=== PATIENT | male | born 1960 | race Caucasian/White ===

== ENCOUNTER → 2016-05-11 | Outpatient (CLI) | payer MEDICAID ==
[~2016-05-11] MED LIST: ASPI81TAEC PO; CURI4PAD20 XX; FOLI1TAB2 PO; GABA300C3 PO; LEVO150T7 PO; OXYC-517 PO; SYNT175T2 PO; THIA100TA PO; TRIPOIN4 EX; VITA100T2 PO; ZOFR4TAB3 PO; serax PO
== END ==
LOC: M OUTALCOH 08:59
PROVIDERS: ATTEND Psychiatry & Neurology Psychiatry
DX: F10.20 Alcohol dependence, uncomplicated (principal)

== ENCOUNTER 2016-05-23 09:22 | Outpatient (RCR) | payer MEDICAID | END 2016-05-24 | disposition home or self-care (01) | LOC: M OUTALCOH 09:22 | PROVIDERS: ATTEND Psychiatry & Neurology Psychiatry | DX: F10.20 Alcohol dependence, uncomplicated (principal) ==

== ENCOUNTER 2016-06-13 08:45 | Outpatient (RCR) | payer MEDICAID | END 2016-06-21 | LOC: M OUTALCOH 08:45 | PROVIDERS: ATTEND Psychiatry & Neurology Psychiatry | DX: F10.20 Alcohol dependence, uncomplicated (principal) ==

== ENCOUNTER 2017-10-12 09:32 | Emergency (ER) | payer OTHER, MEDICAID ==
[2017-10-12] MEDS: OXAZEPAM 15 MG CAP PO (10:17)
[2017-10-12 10:25] LABS: HEMATOCRIT 42.1 % (42.0-52.0); HEMOGLOBIN 15.2 g/dl (13.5-17.5); MEAN CORPUSCULAR HEMOGLOBIN 30.8 pg (27.0-33.0); MEAN CORPUSCULAR HGB CONC 36.1 g/dl (32.0-36.5); MEAN CORPUSCULAR VOLUME 85.4 fl (80.0-96.0); PLATELET COUNT, AUTOMATED 215 10^3/uL (150-450); RED BLOOD COUNT 4.93 10^6/uL (4.30-6.10); RED CELL DISTRIBUTION WIDTH 13.3 % (11.5-14.5); WHITE BLOOD COUNT 9.3 10^3/uL (4.0-10.0)
[2017-10-12 10:45] LABS: INR 0.82; PROTHROMBIN TIME 11.3 SECONDS (12.4-14.5)
[2017-10-12 10:57] LABS: ALBUMIN 3.6 GM/DL (3.2-5.2); ALBUMIN/GLOBULIN RATIO 1.06 (1.00-1.93); ALKALINE PHOSPHATASE 137 U/L (45-117); ALT/SGPT 34 U/L (12-78); ANION GAP 11 MEQ/L (8-16); AST/SGOT 42 U/L (7-37); BILIRUBIN,DIRECT 0.3 MG/DL (0.0-0.2); BILIRUBIN,TOTAL 0.7 MG/DL (0.2-1.0); BLOOD UREA NITROGEN 12 MG/DL (7-18); CALCIUM LEVEL 7.8 MG/DL (8.5-10.1); CARBON DIOXIDE LEVEL 27 MEQ/L (21-32); CHLORIDE LEVEL 103 MEQ/L (98-107); CREATININE FOR GFR 1.16 MG/DL (0.70-1.30); ETHYL ALCOHOL (ETHANOL) 0.275 % (0.000-0.010); FREE T4 0.85 NG/DL (0.76-1.46); GLOMERULAR FILTRATION RATE > 60.0 (>56); GLUCOSE, FASTING 109 MG/DL (70-100); SODIUM LEVEL 141 MEQ/L (136-145)
== END 2017-10-12 15:31 | disposition home or self-care (01) ==
LOC: M ED 09:32
DX: F10.10 Alcohol abuse, uncomplicated (principal); Z85.850 Personal history of malignant neoplasm of thyroid; Z79.82 Long term (current) use of aspirin; Z79.899 Other long term (current) drug therapy
CPT/HCPCS: G0480